=== PATIENT | female | born 1965 | race Two or more races ===

== ENCOUNTER 2017-12-10 12:00 | Emergency (ER) | payer BC, OTHER ==
[~2017-12-10] VITALS: Ht 167.6 cm; Wt 81.6 kg
[2017-12-10 12:10] VITALS: BP 139/81
[2017-12-10] MEDS ORDERED: KETOROLAC TROMETH 60MG/2ML VIAL IM ONE (13:30)
== END 2017-12-10 14:39 | disposition home or self-care (01) ==
LOC: ER 12:00
DX: R51 Headache (principal); E11.9 Type 2 diabetes mellitus without complications; I10 Essential (primary) hypertension; V43.52XA Car driver injured in collision with other type car in traffic accident, initial encounter; Y93.89 Activity, other specified; Y92.488 Other paved roadways as the place of occurrence of the external cause; Y99.8 Other external cause status
CPT/HCPCS: 70450; 96372; 99284; J1885